=== PATIENT | male | born 1940 | race Caucasian/White ===

== ENCOUNTER 2018-07-04 20:50 | Inpatient (IN) | payer OTHER ==
[2018-07-04 21:05] VITALS: BP 116/71
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
--- NOTE | 2018-07-05 04:45 | NUR ---
TWO STAFF MEMBERS HAVE BEEN GOING INTO THE PATIENT'S ROOM EVERY 2 HOURS TO TRY TO CHANGE HIM, HE HAS BEEN REFUSING CARES. WILL PASS THIS ON TO THE NEXT SHIFT.
--- NOTE | 2018-07-05 06:19 | NUR ---
THE PATIENT WOULD NOT LET STAFF CHANGE HIM THIS AM. RESP., EVEN, AND UNLABORED. REMAINS ON 12 MINUTE CHECKS FOR HIS SAFETY.
--- NOTE | 2018-07-05 07:53 | NUR ---
ASSUMED CARE AT 0700. PATIENT IS ALERT TO PERSON, [place], LUNGS ARE CLEAR AND DEMINISHED. ABD IS SOFT WITH BSX4. PATIENT IS IN BRIEF, PATIENT WOUND NOT LET NOC STAFF CHANGE HIM. HE SLEPT IN HIS CLOTHES. PATIENT WAS COOPERATIAVE AND ALLOWED STAFF TO TAKE HIS VS, AND PUT ON HIS WRIST BAND. WILL CONTINUE TO MONITER.
[2018-07-05 07:54] VITALS: BP 152/98
--- NOTE | 2018-07-05 10:19 | NUR ---
0800 ATTEMPTED TO GET PATIENT TO HAVE BREAKFAST THIS A.M. PATIENT WOULD NOT OPEN HIS EYES OR RESPOND VERBALLY. 0945 PCT ASKED HIM AGAIN IF HE WOULD LIKE TO GET UP AND CHANGE HIS CLOTHES, AND HAVE SOME BREAKFAST. HE STATED"HE MIGHT", BUT THEN CLOSED HIS EYES AGAIN.
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
--- NOTE | 2018-07-05 14:52 | NUR ---
SW tried to engage Pt multiple times today. 0855 SW tried to engage entered room and called Pt's name. Pt appeared alseep. 1130 SW went into Pt room called Pt's name. Pt appeared to be asleep. 210 SW went into Pt's room and called Pt's name. Pt's eyes were closed and Pt did not respond. Pt appeared woke with eyes closed. SW was unable to complete psychosocial assessment. SW will try again tommorrow.
--- NOTE | 2018-07-05 17:17 | NUR ---
STAFF WENT INTO PATIENTS ROOM TO SEE IF HE WOULD LIKE TO GO DINNER. HE REACHED OUT HIS HAND AND SHOOK HIS HEAD YES. PATIENT ASSITED TO BATHROOM TO VOID, CHANGE HIS BRIEF, GET CLEANED UP AND PUT ON NEW BRIEF, GOWN, BOTTOMS. PATIENT WAS AMBULATED TO DINING ROOM FOR DINNER. PATIENT NEEDED ASSISTANCE WITH HIS MEAL. PATIENT IS COMPLIANT WITH DINNER AND CLOTHES CHANGE. WILL CONTINUE TO MONITER.
[2018-07-05 20:37] VITALS: BP 121/76
[2018-07-05 21:21] VITALS: BP 121/76
--- NOTE | 2018-07-06 04:14 | NUR ---
PT ALOOF, GUARDED, AND UNWILLING OR UNABLE TO ENGAGE WITH STAFF OR OTHER PTS. ESCORTED TO HIS ROOM AT , COOPERATIVE. TOOK MEDS WITH ENCOURAGMENT. SLEPT WELL.
[2018-07-06 07:57] VITALS: BP 121/80
--- NOTE | 2018-07-06 09:42 | NUR ---
ASSUMED CARE AT 0700. PT A&O TO SELF. PT APPEARS VERY WITHDRAWN, FLAT AFFECT. PT HAS BLANK STARE WHEN SPOKEN TO. PT TOOK PILLS WHOLE WITH THIN LIQUIDS. PT DID NEED ENCOURAGEMENT TO TAKE PILLS. PT NEEDS ASSISTANCE WITH FEEDING DURING MEALS. PT HAS BLACK GLOVE ON R HAND. RN IS UNSURE WHY GLOVE IS ON HAND. PT REFUSES TO TAKE IT OFF AND UNABLE TO EXPLAIN WHY IT IS ON. WILL CONTINUE TO MONITOR PT.
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
[2018-07-06 19:13] VITALS: BP 110/81
[2018-07-06 21:49] VITALS: BP 110/81
--- NOTE | 2018-07-06 22:11 | EKG ---
[address] [address] ELECTROCARDIOGRAM REPORT Name: TRACY VELIZ Room #: 520A-A ADM IN M.R.#: [id number] Admission: 07/04/18 Attend Phys: Edy Menjivar DO Discharge: Date of : 44 Report #: [id number] THIS REPORT FOR: //name// [facility] Test Date: 2018-07-06 Test Time: 15:17:05 Pat Name: TRACY VELIZ Department: Room: 520A A Gender: M Burr Grinder: NAVA : 1940 Requested By: Eliecer Silverman Order Number: [id number] MD: Robert Mendez Measurements Intervals [place] Rate: 67 P: 26 [place]: 176 QRS: -36 QRSD: 95 T: 76 QT: 410 QTc: 433 Interpretive Statements Sinus rhythm Left axis deviation No previous ECG available for comparison Electronically Signed On 07-06-2018 22:11:19 FORWARD AIR CONTROLLER/AIR OFFICER by Robert Mendez [email or web address] <ELECTRONICALLY SIGNED> By: Robert Mendez MD 07/06/18 2211 1517 1517 MD LOKESH Sweeney
--- NOTE | 2018-07-07 02:01 | NUR ---
PT ENCOURAGED TO COME OUT OF ROOM THIS PM. SAT WITH PEERS AND STAFF, BUT SHOWS LITTLE INTEREST IN SURROUNDINGS. VIGILANT, BUT EMOTIONALLY FLAT AND LACKING ANY ANIMATION. AFTER TAKING HS MEDS, RETURNED TO HIS ROOM AND BED. SLEPT WELL THROUGH THE NIGHT.
[2018-07-07 09:14] VITALS: BP 118/74
--- NOTE | 2018-07-07 12:21 | NUR ---
PATIENT WITHOUT AGGRESSIVE BEHAVIOR. DOES NOT FEED SELF; NEEDS ASSISTANCE.
--- NOTE | 2018-07-07 13:36 | NUR ---
ASSUMED CARE OF PT AROUND 1232, QUIET, TOLD A.M. MEDS PASSED YET RN REPORTED HAVING DIFFICULTIES WITH SCANNER. READ REPORTS AND INTRO'D SELF TO PT. QUIET AND TAKES TIME TO ANSWER YET WILL ANSWER SHORT QUESTIONS IF GIVEN TIME. WILL CONTINUE TO MONITOR
--- NOTE | 2018-07-07 18:25 | NUR ---
CHANGED BRIEF AFTER DINNER, WET. PT IN DAY ROOM ALL OF SHIFT. WILL ANSWER QUESTIONS, INFREQUENTLY, VERY MCGRATH AND APPEARS SLOW TO ASSIMILATE.
[2018-07-07 20:27] VITALS: BP 135/81
--- NOTE | 2018-07-07 22:32 | NUR ---
ASSUMED CARE OF THE PATIENT AT 2015 PM. THE PATIENT WAS SITTING IN THE DAYROOM WHEN THIS DIGITAL PRODUCTION MANAGER CAME ON DUTY. ALERT, ORIENTED TO PERSON ONLY. HE SPEAKS WHEN SPOKEN TOO, TALKS VERY SOFTLY. TOOK HIS MEDICATION WITHOUT ANY DIFFICULTY. THE DROP WIRE HANGER ASSISTED THE PATIENT TO BED. REMAINS ON 12 MINUTE CHECKS FOR HIS SAFETY.
--- NOTE | 2018-07-08 05:22 | NUR ---
THE PT SLEPT 4.6 HOURS LAST NIGHT. HE WAS UP AND DOWN ALL NIGHT, WALKING FROM HIS ROOM TO THE DAYROOM AND THEN BACK TO BED. REMAINS ON 12 MINUTE CHECKS.
[2018-07-08 10:32] VITALS: BP 155/94
--- NOTE | 2018-07-08 15:43 | NUR ---
ASSUMED PT CARE AT 0700H. PT HAS NO S/S OF DISTRESS. PT ALERT. PT DENIES THOUGHTS OF HARMING SELF OR OTHERS. PT ALSO DENIES ANY PAIN. PT BEING IN DAY ROOM SITTED CALM. PT SEEN AT TIMES SLEEPING. PT HAD ISSUES SWALLOWING HUGE PILLS PT ATTEMPTS TO CHEW MEDS. CONSULT WITH PHYSICIAN, PT MEDS COULD BE CRUSHED AND GIVEN IN APPLE SAUCE. CASE MANAGEMENT ASKED TO FAX H&P AND PROGRESS NOTE TO PT'S PRIOR FACILITY TO [facility]) THROUGH FAX [phone]. PT CONTINUES TO BE MONITORED Q12 MINS ROUNDS FOR SAFETY.
[2018-07-08 20:08] VITALS: BP 114/74
--- NOTE | 2018-07-08 23:57 | NUR ---
pt incontinence of bladder and bowel, x2 bm tonight, constantly setting bed alarm, currently in the dining room watching tv quietly, had hs snack, feed self, tolerated fluids with no coughing, took meds with no difficulty, meds crushed.
[2018-07-09 07:10] LABS: HEMOGLOBIN 13.5 gm/dL (14.0-18.0); MCH 30.6 pg (26.0-34.0); MCHC 32.9 g/dL (28.0-37.0); MCV 92.9 fL (80.0-100.0); RBC 4.41 mil/uL (4.50-6.00); WBC 7.5 thou/uL (4.0-11.0)
[2018-07-09 07:13] LABS: CALCIUM 8.9 mg/dL (8.5-10.1); CREATININE 0.8 mg/dL (0.7-1.3); MAGNESIUM 2.1 mg/dL (1.8-2.4); POTASSIUM 4.1 mmol/L (3.5-5.1)
[2018-07-09 08:00] VITALS: BP 112/60
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
[2018-07-09 19:45] VITALS: BP 116/72
[2018-07-09 21:40] VITALS: BP 116/72
--- NOTE | 2018-07-10 03:04 | NUR ---
PT ESCORTED TO BED THIS PM. CHANGED BRIEF HE WAS WET. COOPERATIVE WITH PROCEDURE. SLEPT WELL THROUGH THE NIGHT. ONLY NEEDED TO CHANGE HIM ONCE OVERNIGHT. WILL MAKE CERTAIN HE IS UP AND READY BY THE AM.
[2018-07-10 08:00] VITALS: BP 124/74
[2018-07-10] MEDS ORDERED: HYTRIN 1 MG CAP1 MG PO (08:53)
[2018-07-10] MEDS ORDERED: OLANZAPINE10 M2 IM (08:54)
[2018-07-10] MEDS ORDERED: REMERON15 MG PO (08:54)
[2018-07-10] MEDS ORDERED: ASPIR 8181 MG PO (08:54)
[2018-07-10] MEDS ORDERED: CENTRUM SILVER1 EAC4 PO (08:55)
[2018-07-10] MEDS ORDERED: ZYPREXA 5 MG TAB5 M1 PO (08:55)
--- NOTE | 2018-07-10 11:30 | NUR ---
DISCHARGE & AFTERCARE PLAN Patient name: TRACY VELIZ Date of Admission: 07/04/18 Date & Time of Discharge: July 10, 2018 at 1330 Discharged to: Memory Care unit Name of Placement: [facility] Address: [place] [address] Placement contact: Lucien Via: Accompanied by: [facility] Symptoms that may indicate need for re-assessment: Pt need wass reassessed for dementia. If any of the above symptoms re-occur, call the patient's outpatient Psychiatrist listed below or call Crisis Line at: Emergency services FOLLOW-UP CARE: Pt will need to be follow-up with the facility physcian and psychiatrist Psychiatrist: Date: Address: Appointment Date: Time: Therapist: ' Date: Address: Time: Appointment Date: Community Clinic/Primary Care/Other Medical Referral: International Sales Representative: ' Phone: Address: Appointment Date: Primary Care Clinic: Phone: Address: Appointment Date: Reason for referral: [facility] Lever Tender: Phone: Address: International Sales Representative: Start Date: Payee: Phone: step/CD Program: Phone: Substance Use/Tobacco Treatment: Outpatient Counseling Appointment Date: Time: Phone/Fax/email: *Quit line, [facility], Internet structured programs based on patient's needs. Other: Phone: Appointment Date: Time: Psychotropic medication will continue to be titrated to signs, symptoms and behaviors, in an attempt to transition and taper to effective monotherapy. Diet on Discharge: Regular Legally Authorized Public Relations Sales Marketing: DPOA Name: Sakina Veliz Phone #: [phone] Fax: Other Community Resources/Referrals: record clerk salesperson: Phone #: Goals following DC: Pt referred to another facility with a memory care unit. Pt has neurocognitive disease. Additional instructions attached: Name, Relationship, Phone/Fax of Designee(s) to receive copy of aftercare plan: The above person(s) is/are authorized to receive a copy of this aftercare plan. This aftercare plan has been planned & reviewed with me, and I understand the recommendations of this aftercare plan. I decline to designate another person to receive a copy of this plan. Staff will contact you after discharge via phone call to follow up on post discharge treatment and status of your participations in care after discharge. Patient Signature Date Legally Authorized Public Relations Sales Marketing Date Lever Tender/Shirt Closer Date Registered Nurse Date
--- NOTE | 2018-07-10 12:27 | NUR ---
CM RECIEVED FORWARD VOICE MESSAGE FROM NATALYA BEAR WITH [facility] WHO IS REQUESTING UPDATED CLINICAL BE FAXED TO # , PHONE # . CM PASSED ON INFORMATION TO Patricia RUSSELL.
--- NOTE | 2018-07-10 13:07 | NUR ---
Pt. up on unit much of the morning. staff fed pt. meals. pt. mostly nonverbal, but will mutter a few words at times. Meds, orders faxed to [facility]. D/C ORDER WRITTEN BY DR. GUEVARA. BELONGS GATHERED. REPORT CALLED TO Onur LINDA AT [facility]. PT. COOPERATIVE WITH PROCESS. [facility] TO PICK PT. UP ABOUT 1300.
[2018-07-10 14:08] VITALS: BP 110/70
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
== END 2018-07-10 15:29 | DRG 57 ==
LOC: SBH 20:50
PROVIDERS: Internal Medicine; ADMIT Psychiatry & Neurology Psychiatry
DX: G30.9 Alzheimer's disease, unspecified (principal); F02.81 Dementia in other diseases classified elsewhere, unspecified severity, with behavioral disturbance; F01.51 Vascular dementia, unspecified severity, with behavioral disturbance; N40.0 Benign prostatic hyperplasia without lower urinary tract symptoms; E78.5 Hyperlipidemia, unspecified; G47.00 Insomnia, unspecified; Z88.8 Allergy status to other drugs, medicaments and biological substances; Z79.82 Long term (current) use of aspirin; Z79.899 Other long term (current) drug therapy; Z28.21 Immunization not carried out because of patient refusal
CPT/HCPCS: 10880

== ENCOUNTER 2018-07-25 07:11 | Emergency (ER) | payer OTHER ==
[~2018-07-25] VITALS: Ht 170.2 cm; Wt 63.5 kg
[~2018-07-25 07:11] MED LIST: ASPIR 8181 MG PO; CENTRUM SILVER1 EAC4 PO; HYTRIN 1 MG CAP1 MG PO; OLANZAPINE10 M2 IM; REMERON15 MG PO; ZYPREXA 5 MG TAB5 M1 PO
[2018-07-25 07:49] LABS: ABSOLUTE NEUTROPHILS 7.7 thou/uL (1.4-8.2); BASOPHILS 0.7 % (0.0-2.0); EOSINOPHILS 2.2 % (0.0-3.0); HEMATOCRIT 41.4 % (42.0-52.0); HEMOGLOBIN 13.6 gm/dL (14.0-18.0); LYMPHOCYTES 16.8 % (24.0-44.0); MCH 30.1 pg (26.0-34.0); MCHC 32.8 g/dL (28.0-37.0); MCV 91.9 fL (80.0-100.0); MONOCYTES 5.7 % (1.0-8.0); PLATELET COUNT 241 thou/uL (150-400); POLYS 74.6 % (36.0-66.0); WBC 10.4 thou/uL (4.0-11.0)
[2018-07-25 08:00] LABS: ANION GAP 9 mmol/L (7-16); BUN 21 mg/dL (7-18); CALCIUM 9.5 mg/dL (8.5-10.1); CHLORIDE 106 mmol/L (98-107); CO2 29 mmol/L (21-32); GLUCOSE 83 mg/dL (74-106); POTASSIUM 3.7 mmol/L (3.5-5.1); SODIUM 144 mmol/L (136-145)
[2018-07-25 08:05] LABS: ALBUMIN 3.7 g/dL (3.4-5.0); SALICYLATE < 2.8 mg/dL (2.8-20.0); SGOT 18 U/L (15-37); SGPT 24 U/L (30-65); TOTAL BILIRUBIN 0.3 mg/dL (<0.1-1.0); TOTAL PROTEIN 7.5 g/dL (6.4-8.2)
--- NOTE | 2018-07-25 08:19 | EKG ---
[place] [address] [facility] [place] [place] [address] ELECTROCARDIOGRAM REPORT Name: TRACY VELIZ Room [facility] [id number] Admission: 07/25/18 Attend Phys: Discharge: Date of : 44 Report #: [id number] THIS REPORT FOR: //name// [facility] ED Test Date: 2018-07-25 Test Time: 07:28:42 Pat Name: TRACY VELIZ Department: Room: Gender: Environmental Engineering Technician: [facility] : 1940 Requested By: Trever Gamboa Order Number: [id number] MD: Robert Mendez Measurements Intervals [place] Rate: 64 P: 41 [place]: 189 QRS: -38 QRSD: 91 T: 64 QT: 430 QTc: 444 Interpretive Statements Sinus rhythm Left axis deviation Compared to ECG 07/06/2018 15:17:05 No significant changes Electronically Signed On 07-25-2018 8:19:39 HOSE OPERATOR by Robert Mendez [email or web address] <ELECTRONICALLY SIGNED> By: Robert Mendez MD 07/25/18818 7 Robert Mendez MD /CITLALY
[2018-07-25 09:46] LABS: URINE BILIRUBIN NEGATIVE (Negative); URINE BLOOD 2+ (Negative); URINE COLOR YELLOW; URINE GLUCOSE-RANDOM* NEGATIVE (Negative); URINE KETONES NEGATIVE (Negative); URINE NITRITE-REFLEX NEGATIVE (Negative); URINE PROTEIN (DIPSTICK) TRACE (Negative); URINE SPECIFIC GRAVITY >= 1.030 (1.005-1.035); URINE UROBILINOGEN 0.2 E.U./dl (0.2-1.0)
[2018-07-25 09:49] LABS: URINE CLARITY HAZY; URINE LEUKOCYTES-REFLEX 1+ (Negative)
[2018-07-25 10:07] LABS: AMP/METHAMP Negative (Negative); BARBITURATES Negative (Negative); BENZODIAZEPINES Negative (Negative); COCAINE Negative (Negative); METHADONE Negative (Negative); OPIATES Negative (Negative); PCP Negative (Negative)
[2018-07-25 10:09] LABS: BACTERIA-REFLEX 1-9 Few /HPF (None Seen); CASTS None Seen /LPF (None Seen); CRYSTALS None Seen /LPF (None Seen); SQUAMOUS None Seen /LPF (0-3); URINE RBC 3-10 Few /HPF (0-2); URINE WBC-REFLEX >25 Many /HPF (0-5)
[2018-07-25 15:15] VITALS: BP 113/60
== END 2018-07-25 15:15 ==
LOC: ER 07:11
PROVIDERS: Emergency Medicine
DX: F03.91 Unspecified dementia, unspecified severity, with behavioral disturbance (principal); N40.0 Benign prostatic hyperplasia without lower urinary tract symptoms; G47.00 Insomnia, unspecified; Z88.8 Allergy status to other drugs, medicaments and biological substances